=== PATIENT | male | born 1965 | race Caucasian/White ===

== ENCOUNTER 2020-07-19 13:41 | Emergency (ER) | payer OTHER ==
[2020-07-19 14:40] LABS: HEMOGLOBIN 16.3 gm/dl (14.0-17.5); RED BLOOD COUNT 5.27 M/UL (4.20-5.50); WHITE BLOOD COUNT 13.7 K/UL (4.5-11.0)
[2020-07-19] MEDS ORDERED: ZOFRAN ODT 4 MG4 MG PO (18:09)
[2020-07-19] MEDS ORDERED: TORADOL 10 MG T10 MG PO (18:09)
== END 2020-07-19 18:30 | disposition home or self-care (01) ==
LOC: ER1 13:41
PROVIDERS: Family Medicine
DX: N13.2 Hydronephrosis with renal and ureteral calculous obstruction (principal); R91.8 Other nonspecific abnormal finding of lung field; E11.9 Type 2 diabetes mellitus without complications; E78.5 Hyperlipidemia, unspecified; I10 Essential (primary) hypertension; F17.210 Nicotine dependence, cigarettes, uncomplicated; Z20.822 Contact with and (suspected) exposure to COVID-19; Z79.82 Long term (current) use of aspirin
CPT/HCPCS: 80053; 81001; 83605; 83690; 85025; 96374; 96375; 99284; J1885; J2405; J7030; U0002

== ENCOUNTER → 2021-02-07 | Outpatient (CLI) | payer OTHER ==
[~2021-02-07] MED LIST: TORADOL 10 MG T10 MG PO; ZOFRAN ODT 4 MG4 MG PO
== END ==
LOC: KOH-I 09:47
DX: N20.0 Calculus of kidney (principal); R91.8 Other nonspecific abnormal finding of lung field
CPT/HCPCS: 74176